=== PATIENT | female | born 2005 | race Caucasian/White ===

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

== ENCOUNTER 2025-06-11 13:15 | Emergency (ER) | payer BC, SELFPAY ==
--- OUTSIDE RECORDS SUMMARY | 2025-06-11 13:23 | XMS_ITS | Clinical Summary ---
Author Organization [facility] lin Address [address] [place] [address] Care Team Providers Care Resident Care Provider Name Role Phone Unavailable Primary Care Provider Unavailabl e Social History Tobacco UseTypesPacks/DayYears UsedDateSmoking Tobacco: Never Assessed CommentsUnknownSex and Gender InformationValueDate RecordedSex Assigned at Not on fileLegal SvpPeemiv12/25/2022 9:42 AM ESTGender IdentityNot on fileSexual OrientationNot on file Plan of Treatment Not on file Medical Devices Not on file
--- OUTSIDE RECORDS SUMMARY | 2025-06-11 13:24 | XMS_ITS | Clinical Summary ---
Author Organization [facility] Address [address] [place] [address] Care Team Providers Care Cotton Tier Name Role Phone Unavailable Primary Care Provider Unavailabl e Source Comments You are receiving this document as you are listed as the PCP, follow-upprovider, or the patient hasbeen referred to you for consultation. This is incompliance with [facility] Transitions of Care Requirement. Note: Specific treatmentrecords and notes about services for mental health, developmental disabilities,alcoholism, drug dependence, or substance abuse, you will need to contact theMedical Records Department at [phone] and complete a separate Release ofAuthorization form. They are also available to answer other questions.[facility] Allergies No known active allergies Medications Please verify all current medications with the patient. No known medications Social History Tobacco UseTypesPacks/DayYears UsedDateSmoking Tobacco: Never AssessedSex and Gender InformationValueDate RecordedSex Assigned at BirthNot on fileGender IdentityNot on fileSexual OrientationNot on file Last Filed Vital Signs Vital SignReadingTime TakenCommentsBlood Uvgokesu211/8602 8:23 PM PROFESSOR OF COUNSELING Dsrgy9016 8:58 PM ZJBHnzrehzsqfu42.6 ??C (97.8 ??F)08/19/2011 8:23 PM CSTRespiratory Npjb598108/19/2011 8:58 PM CSTOxygen Gnrjdoondg65%08/19/2011 8:58 PM CSTInhaled Oxygen Concentration--Idpyno08.1 kg (51 lb)08/19/2011 8:23 PM PROFESSOR OF COUNSELING Height--Body Mass Index-- Plan of Treatment Health MaintenanceDue DateLast DoneCommentsANNUAL DEPRESSION SCREENING,ADULT 2003ANNUAL BMI FEZSUAFQDQ20/07/2006HIV QLDUTO0607/03/2018VACCINE: HPV (CDC RULES) (1 - 3-dose series)2018ADULT VACCINE: TETANUS( TD) BOOSTER,EVERY 10 YR3CHOL SCREENING: EVERY 5 YEARS4CA SCREENING: PAP SMEAR, EVERY 3 YEARS5Covid-19 Vaccine ( season)2025INFLUENZA VACCINE (#1)5ADULT VACCINE: SHINGRIX (1 of 2)4PEDS RSV < 20 MONAged OutNo longer eligible based on patient's age to complete this topic PNEUMOCOCCAL VACCINEAged OutNo longer eligible based on patient's age to complete this topic Insurance PayerBenefit Plan / GroupSubscriber IDEffective DatesPhoneAddressTypeBLUE CROSS BCBS OUT OF STATE [id number] 2017-Present [id number] [place] [address] PPO
--- OUTSIDE RECORDS SUMMARY | 2025-06-11 13:24 | XMS_ITS | Clinical Summary ---
Author Organization [facility] Address [address] [place] [address] Care Team Providers Care Missile Inspector Preflight Name Role Phone Daisy Gray MD Primary Care Provider [phone] Allergies No known active allergies Medications No known medications Social History Tobacco UseTypesPacks/DayYears UsedDateSmoking Tobacco: NeverSmokeless Tobacco: NeverSocial ConnectionsAnswerDate RecordedConversations with friends/family/neighbors per weekNot on file09/06/2020Housing StabilityAnswer Date RecordedMortgage Payment Concerns?Not on file01/10/2021Number of Places Lived in the Last YearNot on file01/10/2021Unstable Housing?Not on file 01/10/2021CommentsUnknownSex and Gender InformationValueDate RecordedSex Assigned at BirthNot on fileLegal MxdFgbjcp69/11/2012 5:08 PM CSTGender Identity Not on fileSexual OrientationNot on file Last Filed Vital Signs Vital SignReadingTime TakenCommentsBlood Psnqskjy800/6908 10:53 PM CDT Gtbel624102/19/2019 10:53 PM ILPXqtwrjzrcyp08.1 ??C (97 ??F)02/19/2019 10:53 PM CDTRespiratory Kgls854502/19/2019 10:53 PM CDTOxygen Ygqisgrkcu840%02/19/2019 10:53 PM CDTInhaled Oxygen Concentration--Mbbpuh42.4 kg (100 lb)02/19/2019 10:53 PM PXSHgrupf676 cm (5' 3)02/19/2019 10:53 PM CDTBody Mass Index17.71002/19/2019 10:53 PM CDT Plan of Treatment Health MaintenanceDue DateLast DoneCommentsHIV Fqsotohsr64/07/2004Hepatitis C Cbbsqutkh63/07/2004Screen for Cervical Mpchpl33 2003HPV Vaccines (1 - 3-dose series)2018Chlamydia and Gonorrhea Teaigopsq57/07/2020Meningococcal B (1 of 2 - Standard)2019DTaP,Tdap and Td Vaccines (1 - Tdap)5COVID-19 Vaccine (1 - 2024- season)2025Influenza Vaccine (#1)2025 Pneumococcal 7-64Aged OutNo longer eligible based on patient's age to complete this topicRSV Vaccine (Pediatric)Aged OutNo longer eligible based on patient's age to complete this topic Insurance Care Teams Team MemberRelationshipSpecialtyStart DateEnd Date Daisy Gray MD [address] [place] [id number] PCP - GeneralPediatrics02/19/19
--- OUTSIDE RECORDS SUMMARY | 2025-06-11 13:24 | XMS_ITS | Clinical Summary ---
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 Name Role Phone Giselle Monet MD Primary Care Provider Angela Joseph MD Unavailable Source Comments In the event that this is information that is protected by [facility] Confidentiality of Substance UseDisorder Patient Records, 42 CFR Part 2 prohibits the unauthorized disclosure of these records.[facility] Allergies No known active allergies Medications MedicationSigDispense QuantityRefillsLast FilledStart DateEnd DateStatus ferrous sulfate (IRON ORAL) Take by mouth.Active ibuprofen (ADVIL ORAL) Take by mouth as needed.Active escitalopram oxalate 5 mg tablet Take 1 tablet by mouth daily.07/21/2022ctive calcium carbonate/vitamin D3 (CALTRATE 600 + D ORAL) 08/25/2021ctive mupirocin 2 % ointment Apply a small amount to the affected area three times daily for 10 days. 15 g 01/06/2023ctive albuterol (PROAIR HFA) 90 mcg/actuation inhaler inhale 2 puffs into the lungs every 4 (four) hours as needed for wheezing. 6.7 g ctive Active Problems No known active problems Family History Medical HistoryRelationNameCommentsNo Known ProblemsBrotherFibromyalgiaFather Breast CancerMotherbrca negativeBreast CancerPaternal great-grandmotheralso maternal cousin, maternal great aunt x 2 all less than 50 years oldColon Cancer Neg HxEsophageal cancerNeg HxPancreatic CancerNeg HxStomach CancerNeg HxRelation NameStatusCommentsBrotherAliveFatherAliveMaternal GrandfatherDeceasedMaternal GrandmotherAliveMotherAlivePaternal GrandfatherAlivePaternal GrandmotherAlive Paternal great-grandmotherAlive Social History Tobacco UseTypesPacks/DayYears UsedDateSmoking Tobacco: NeverSmokeless Tobacco: Never Tobacco Cessation:Counseling Given: Not Answered Alcohol UseStandard Drinks/WeekCommentsYes0 (1 standard drink = 0.6 oz pure alcohol)occasionalFood InsecurityAnswerDate RecordedWithin the past 12 months, have there been times that your food ran out and didnt have money to getmore?No 01/26/2022re there times that you worry that this might happen?No01/26/2022 Transportation NeedsAnswerDate RecordedWithin the past 12 months, has lack of transportation kept you from meeting your needs?No01/26/2022How do you normally get to and from your appointments?Other01/26/2022Housing StabilityAnswerDate RecordedAre you facing challenges with a safe and reliable place to live?No 01/26/2022Medication AffordabilityAnswerDate RecordedWithin the past 12 months, have you had trouble paying for medical supplies or medication-related expenses? No01/26/2022ssistanceAnswerDate RecordedWould you like to be connected to groups that can help with any of these topics? 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 year at OlafNot on fileNot on fileNot on file Last Filed Vital Signs Vital SignReadingTime TakenCommentsBlood Njqroirz850/8211/09/2024 9:13 AM CDT Lbjlu045411/09/2024 9:13 AM FBJAquplmlvgwx71.7 ??C (98 ??F)11/09/2024 9:13 AM CDT Respiratory Xmem300402/28/2024 9:38 AM CDTOxygen Bovarhfdkw64%11/09/2024 9:13 AM CDTInhaled Oxygen Concentration--Kpjchu49.1 kg (114 lb 12.8 oz)11/09/2024 9:13 AM AKGDafvni472 cm (5' 3)01/07/2023 1:25 PM CDTBody Mass Index20.34001/07/2023 1:25 PM CDT Plan of Treatment Health MaintenanceDue DateLast DoneCommentsHIV HJWYPSFYZ45/07/2019HEPATITIS C AYZLBMSCE39/07/2022LIPID VDYARVT8107/03/2021MENINGOCOCCAL B (MENB) (2 of 2 - Trumenba SCDM 2-dose series)nnual Well Visit (4-21 y/o) /2CERVICAL CANCER PNWCVBSLB55/07/2025OVID-19 VACCINE ( season)/05/2021, 10/23/2020, 10/02/2020INFLUENZA (#1) /08/2023, 04/26/2023, 04/26/2023, Additional history existsChlamydia Screening-Jmytmc74606/02/2025, 01/26/2022Gonorrhea Screening-Yearly /02/2025, 2DTAP/TDAP/TD (3 - Td or Tdap)11/23/2034 11/23/2024, 09/03/20149935MIDPihtpxbkp89/02/2018, 01/24/2017MENINGOCOCCAL CONJUGATE (MCV4)Knfloxtvc24/03/2020, 09/03/2014Pneumococcal 0-49Aged OutNo longer eligible based on patient's age to complete this topic Procedures Procedure NamePriorityDate/TimeAssociated DiagnosisCommentsCHLAMYDIA TRACHOMATIS/NEISSERIA GONORRHOEAE, SNCXITbbarev09/02/2022 2:29 PM CDT Annual physical exam from Last 3 Months or Most Recently Relevant to Health Maintenance Results * Chlamydia trachomatis/Neisseria gonorrhoeae, Urine (01/26/2022 2:29 PM CDT) ComponentValueRef RangeTest MethodAnalysis TimePerformed AtPathologist SignatureChlamydia trachomatis, IMYWholrdfpOqbrxdog70/03/2022 7:27 AM CDT [facility]Comment:No Chlamydia trachomatis DNA detected by PCR. The assay has been approved by the FDA for use in conjunction with clinical status as an indicator of disease prognosis. DNA is isolated and detected using the Jossy Rosa 4800 Assay.Neisseria gonorrhoeae, PCRNegative Llcnvzcl25/03/2022 7:27 AM CDTNORTST. LUKE'S [facility]MORE [facility] LABComment:No Neisseria gonorrhoeae DNA detected by PCR. The assay has been approved by the FDA for use in conjunction with clinical status as an indicator of disease prognosis. DNA is isolated and detected using the Jsosy Rosa 4800 Assay. Specimen (Source)Anatomical Location / LateralityCollection Method / Volume Collection TimeReceived TimeUrineVOIDED URINE SPECIMEN / UnknownNon-blood Collection / Qmehbog5301/26/2022 2:29 PM CDT01/26/2022 2:29 PM CDT Narrative Authorizing ProviderResult TypeResult StatusShannon Ahmet KAMINSKI ORDERABLESFinal ResultPerforming OrganizationAddressCity/State/ZIP CodePhone Number [facility] Hernesto Calderon [address] [place] [address] from Last 3 Months or Most Recently Relevant to Health Maintenance Insurance * Guarantor: Jonathan Christie TypeRelation to PatientDate of BirthPhone Billing OqdmpxiJajbfMrnf35/07/2006 [address] [place] [address] * Guarantor: Jonathan Christie TypeRelation to PatientDate of BirthPhone Billing AddressNM [id number] 2005 [address] [place] [address] Care Teams Team MemberRelationshipSpecialtyStart DateEnd Giselle Monet MD [address] [facility] [address] [place] [address] PCP - GeneralInternal Bdlcgmob92/7/23 Angela Joseph MD [address] [facility] [address] [place] [address] System Generated Attributed Clinician12/18/24
--- OUTSIDE RECORDS SUMMARY | 2025-06-11 13:24 | XMS_ITS | Clinical Summary ---
Author Organization [facility] Address [address] [place] [address] Care Team Providers Care Materials Analyst Name Role Phone Pcp, No Primary Care Provider Unavailabl e Allergies No known active allergies Medications MedicationSigDispense QuantityRefillsLast FilledStart DateEnd DateStatus cholecalciferol (VITAMIN D3) 1,000 unit capsule Take 1 Capsule by mouth once daily.09/26/2023ctive hydrOXYzine HCL (ATARAX) 25 mg tablet Indications:Sleep disorderTake 1 Tablet (25 mg) by mouth every 6 hours if needed (sleep). 30-60 minutes before bedtime 30 Tablet ctive ferrous sulfate 325 mg (65 mg iron) tablet Take 325 mg by mouth one time if needed.Active Active Problems ProblemNoted DateDiagnosed VfmtDlmanf16/24/2024Decreased bone zznlovl6504/08/2022 History of stress nunmoppb77/13/2022hin splint of right lower extremity 04/08/2022 Encounters DateTypeDepartmentCare FzcxYmxfyekocun76/09/2025 4:15 PM CDTNurse/Clinic Staff Only [facility] [address] [place] [address] Immunization/Injection (HEP B #2); Immunization/Qagvtctoo87/09/2025Travelfrom Last 3 Months Immunizations ImmunizationAdministration DatesNext DueHepatitis B (Adult)04/04/2025,02/26/2025 INFLUENZA, IIV3 PF (AGE >= 6 MO)03/29/2024Influenza,CCIIV4 PRESERV FREE 04/26/2023,03/27/2022 Family History Medical HistoryRelationNameCommentsCancer-prostateMaternal GrandfatherGaylin Cancer-breastMotherGayleeRelationNameStatusCommentsMaternal GrandfatherGaylin DeceasedMotherGayleeAlive Social History Tobacco UseTypesPacks/DayYears UsedDateSmoking Tobacco: NeverSmokeless Tobacco: Never Tobacco Cessation:Counseling Given: Not Answered Alcohol UseStandard Drinks/WeekCommentsYes0 (1 standard drink = 0.6 oz pure alcohol)OccPHQ-2AnswerDate RecordedPHQ-2 TOTAL WNTQV782Social ConnectionsAnswerDate RecordedDo you often feel lonely or isolated from those around you?lcohol UseAnswerDate RecordedHow often do you have a drink containing alcohol?verage Number of DrinksNot on file 03/07/2025Frequency of Binge DrinkingNot on file03/07/2025Financial Resource StrainAnswerDate RecordedDifficulty of Paying Living Vtcpiepv830/24/2024 Difficulty of Paying Living ExpensesNot on file04/19/2024Food InsecurityAnswer Date RecordedDo you worry your food will run out before you are able to buy more?Transportation NeedsAnswerDate RecordedDoes lack of transportation keep you from medical appointments?oes lack of transportation keep you from work, meetings or getting things that you need?1 04/19/2024Housing StabilityAnswerDate RecordedWhat is your housing situation today?UtilitiesAnswerDate RecordedDo you have trouble paying for utilities (for example, heat, electricity, water, phone)?regnant CommentsNoSex and Gender InformationValueDate RecordedSex Assigned at BirthNot on fileLegal RudVdxilt31/02/2022 12:36 PM CDTGender IdentityNot on fileSexual OrientationNot on file Last Filed Vital Signs Vital SignReadingTime TakenCommentsBlood Hgoxaenx134/6709 2:41 PM CDT Xmfeq2116 2:41 PM CDTTemperature--Respiratory Rate--Oxygen Pscqlitncv57% 02/26/2025 2:41 PM CDTInhaled Oxygen Concentration--Aaybjm68.8 kg (112 lb) 02/26/2025 2:41 PM XXFOtftsl490.9 cm (5' 2.95)02/26/2025 2:41 PM CDTBody Mass Index19.8702/26/2025 2:41 PM CDT Plan of Treatment DateTypeDepartmentCare Team (Latest Contact Info)Fnsbvcofhux01/12/2026 3:30 PM CSTOffice Visit [facility] [address] [place] [address] Dillon Shaikh MD [address] [place] [address] Health MaintenanceDue DateLast DoneCommentsTetanus gtkcrwr5707/03/2014HIV for age 15-HPV series for age 9-45 (1 - 3-dose series)2018 Meningococcal series for age 11-21 (1 - 2-dose series)2019Hepatitis C screening for age 18-792Pneumococcal series for age 6-49 (1 of 2 - PCV) 3Pap test for age 21-5COVID-19 vaccine series (2024- season)/, 04/26/2023, 03/31/2022Influenza Vaccine (#1) /08/2023, 04/26/2023, 2Depression screening for age 12+ /Hepatitis B series for 19+ (3 of 3 - 19+ 3-dose series) 0/02/2025, 5BMI (ht and wt on same day) for age 18+ /07/2024, 04/19/2024 Insurance Care Teams Team MemberRelationshipSpecialtyStart DateEnd Date PcpAva PCP - General02/26/22
[2025-06-11 13:35] VITALS: BP 121/80; PULSE 105; RESP 20; TEMP 36.5; O2SAT 95
--- NOTE | 2025-06-11 14:39 | ED.PSYCH ---
HPI - Psych General Date Seen: 06/11/25 Chief Complaint: Psychiatric Problem/Disorder Stated Complaint: Mental health Time Seen by Provider: 06/11/25 13:30 Source: patient, EMS and other Mode of arrival: EMS Limitations: no limitations History of Present Illness HPI Narrative: Patient is a 19-year-old female with a history of anxiety and depression presenting to the emergency department for mental health evaluation. She went to urgent care to get sutures for laceration on her abdomen. There they were concerned about her mental health and sent her to the emergency department. She was placed on a transport hold. While I spoke to the patient she states she is very anxious about fine nose so she did this on Tuesday. States findings are no done in her anxiety has greatly improved. She spoke to the [facility] and today as she does once a week and was told to go to urgent care to have sutures done. For me the patient denies any suicidal ideation, homicidal ideation. She states she has had cuts before but they are very superficial. Does have 1 larger laceration on her right forearm that is maybe a cm in length. Has never attempted suicide in the past. And has never had any in patient's psychiatric hospitalizations. She did tell me I a.m. able to speak to the [employer] TEST EXAMINER, Mulu. I spoke to Mulu and she states that the patient has some her in the office prior to leaving to go to [place] to go a family trip. She states the patient was acting her usual self just wanted know what she should do about the wound. She states the patient has shown clear signs of thinking about her future and has been goal orientated. She does not believe the patient is in any immediate risk for suicide. States patient sees her therapist regularly also who Mulu is also in touch with. She also states that they adjusted some of her medications today and plan to just more when patient comes back. She does not sing contacting the patient's family will be helpful as they are very resistant to mental health care. Related Data Home Medications ?Medication ?Instructions ?Recorded ?Confirmed propranolol 10 mg tablet 5 - 20 mg PO PRN anxiety 05/09/25 06/11/25 hydroxyzine HCl 50 mg tablet 50 mg PO QHS 05/19/25 06/11/25 sertraline 150 mg capsule 150 mg PO QDAY 05/19/25 06/11/25 Previous Rx's ?Medication ?Instructions ?Recorded mupirocin 2 % topical ointment 1 applic topical BID-TID #22 grams 05/19/25 Allergies Allergy/AdvReac Type Severity Reaction Status Date / Time No Known Drug Allergies Allergy Verified 05/19/25 09:55 Review of Systems Status of ROS: Reports: 10 or more systems reviewed and unremarkable except as noted in History and below [facility] Medical History No significant past medical history Surgical History No significant past surgical history Social History Smoking Status: Never smoker Do you use any of these nicotine containing products: None Second hand tobacco smoke exposure: No How often do you have a drink containing alcohol: never How often do you have six or more drinks on one occasion: Never AUDIT-C Alcohol total score: 0 Non-prescribed substance use: denies use Exam Narrative: Exam Narrative: Const: Well-nourished, Well-developed, in mild distress Eyes: PERRL, no conjunctival injection, and symmetrical lids HENT: Atraumatic external nose and ears. Moist mucous membranes. Neck: Symmetric, trachea midline, No thyromegaly. CVS: RRR, No murmurs or gallops. Peripheral pulses 2+ and equal in all extremities RESP: Unlabored respiratory effort. Clear to auscultation bilaterally. GI: Nontender/Nondistended, No rebound or guarding. MSK:Extremities w/o deformity, Normal Active ROM Skin: Warm, Dry. One laceration about cm in length noted to patient's right forearm and a 6.5 cm laceration noted to her abdomen but does expose adipose tissue. No old or healing cut to any other part of her body. Neuro: Normal Muscle tone, No focal neurological deficits. Psych: Awake, Alert, & Oriented x3. Appropriate mood and affect. Const: Vital Signs, click to edit/add: Vital Signs - 24 hr 06/11/25 13:35 Temperature 97.7 F Pulse Rate [Pulse Oximeter] 105 H Respiratory Rate 20 Blood Pressure [Le ft Upper Arm] 121/80 Pulse Oximetry 95 Oxygen Delivery Me thod Room Air Course Vital Signs Vital signs: Initial Vital Signs Temperature 97.7 F 06/11/25 13:35 Temperature Source Temporal Artery Scan 06/11/25 13:35 Pulse Rate 105 H 06/11/25 13:35 Respiratory Rate 20 06/11/25 13:35 Blood Pressure 121/80 06/11/25 13:35 Blood Pressure Mean 93 06/11/25 13:35 Blood Pressure Position Right Lateral 06/11/25 13:35 Pulse Oximetry 95 06/11/25 13:35 Oxygen Delivery Method Room Air 06/11/25 13:35 Vital Signs Temperature 97.7 F 06/11/25 13:35 Pulse Rate 105 H 06/11/25 13:35 Respiratory Rate 20 06/11/25 13:35 Blood Pressure 121/80 06/11/25 13:35 Pulse Oximetry 95 06/11/25 13:35 Oxygen Delivery Method Room Air 06/11/25 13:35 Temperature 97.7 F 06/11/25 13:35 Pulse Rate 105 H 06/11/25 13:35 Respiratory Rate 20 06/11/25 13:35 Blood Pressure 121/80 06/11/25 13:35 Pulse Oximetry 95 06/11/25 13:35 Oxygen Delivery Method Room Air 06/11/25 13:35 MDM - Psych MDM Narrative Medical decision making narrative: Patient is a 19-year-old female presenting for a mental health evaluation. After speaking to the patient and Mulu of [facility] I do not believe the patient is in acute risk of suicide. Can see, who again has been seen the patient regularly for her mental health is in agreement the patient from her standpoint is safe to go home. We also had her evaluated by WILLIAM who considered the patient low risk. Concern all this I do believe she is safe for discharge. Her wound is too old to suture further will do Steri-Strips were able to close it. Did wash out the wound prior. Will also start her on prophylactic antibiotics. She is safe for discharge Discharge Plan Discharge Clinical Impression: Laceration, Anxiety and depression Patient Disposition: Home, Self-Care Condition: Stable Instructions: Anxiety (ED) Additional Instructions: Is very important you continue to see the can not see at the [facility] and do therapists. Please be careful any drive to [place]. I do recommend speaking with the therapist and mental health providers about possibly high-intensity outpatient treatment. Please return to emergency department immediately if you have any thoughts of suicide or other self-harm. Take the antibiotics as directed. Prescriptions: No Action propranolol 10 mg tablet 5 - 20 mg PO PRN (Reason: anxiety) hydroxyzine HCl 50 mg tablet 50 mg PO QHS sertraline 150 mg capsule 150 mg PO QDAY mupirocin 2 % ointment 1 applic topical BID-TID Qty: 22 0RF Follow Up/Referrals: Provider,Not a Local [Primary Care Provider, Family Practice] Stand Alone Forms: [employer] Info Instructions
== END 2025-06-11 15:04 | disposition home or self-care (01) ==
LOC: ED 14:53
PROVIDERS: Emergency Provider Student in an Organized Health Care Education/Training Program
DX: S31.119A Laceration without foreign body of abdominal wall, unspecified quadrant without penetration into peritoneal cavity, initial encounter (principal); S51.811A Laceration without foreign body of right forearm, initial encounter; F32.A Depression, unspecified; F41.8 Other specified anxiety disorders; X78.9XXA Intentional self-harm by unspecified sharp object, initial encounter
CPT/HCPCS: 99283; 99284; Q3014